=== PATIENT | female | born 1990 ===

== ENCOUNTER 2019-07-04 18:52 | Emergency (ER) | payer BC ==
[2019-07-04] MEDS ORDERED: Acetaminophen/HYDROcodone 325-10 MG Tab PO ONE ×2 (18:53→23:37)
--- NOTE | 2019-07-04 21:14 | EDM.PDOC ---
ED HPI GENERAL MEDICAL PROBLEM - General Chief Complaint: RESIDENTIAL SALES REP Problem Stated Complaint: 7 WEEKS /BLEEDING Time Seen by Provider: 07/04/19 21:11 Source of Information: Reports: Patient History Limitations: Reports: No Limitations - History of Present Illness INITIAL COMMENTS - FREE TEXT/NARRATIVE: been spotting throughout but worse tonight, soaked through 2 pads. [id number]. had US done @ [address] Betancourt @ . Lower Abdominal Pain Score (Numeric/FACES): 8 - Related Data Allergies Allergy/AdvReac Type Severity Reaction Status Date / Time No Known Allergies Allergy Verified 07/04/19 21:16 Past Medical History - Past Health History Medical/Surgical History: Denies Medical/Surgical History RESIDENTIAL SALES REP History: Reports: Social & Family History - Family History Family Medical History: Noncontributory - Tobacco Use Smoking Status *Q: Never Smoker - Caffeine Use Caffeine Use: Reports: Coffee - Recreational Drug Use Recreational Drug Use: No ED ROS GENERAL - Review of Systems Review Of Systems: Comprehensive ROS is negative, except as noted in HPI. ED EXAM - Physical Exam Exam: See Below Exam Limited By: No Limitations General Appearance: Alert, WD/WN, No Apparent Distress Ears: Hearing Grossly Normal Throat/Mouth: Normal Voice, No Airway Compromise Head: Atraumatic Neck: Non-Tender, Full Range of Motion Respiratory/Chest: No Respiratory Distress Cardiovascular: Regular Rate, Rhythm GI/Abdominal Exam: Soft, Non-Tender Neurological: Alert, Oriented, Normal Cognition, Normal Gait, No Motor/Sensory Deficits Psychiatric: Normal Affect, Normal Mood Skin Exam: Warm, Dry, Normal Color Lymphatic: No Adenopathy Course - Vital Signs Last Recorded V/S: Last Vital Signs Temp 36.8 C 07/04/19 20:23 Pulse 75 07/04/19 20:23 Resp 20 07/04/19 20:23 BP 119/83 07/04/19 20:23 Pulse Ox 100 07/04/19 20:23 - Orders/Labs/Meds Labs: Laboratory Tests 07/04/19 07/04/19 07/04/19 Range/Units 20:50 20:50 20:50 WBC 5.4 (5.0-10.0) 10^3/uL RBC 4.51 (4.2-5.4) 10^6/uL Hgb 13.5 (12.0-16.0) g/dL Hct 38.6 (37.0-47.0) % MCV 85.6 (80-100) fL MCH 29.9 (27.0-34.0) pg MCHC 35.0 (33.0-35.0) g/dL Plt Count 266 (150-450) 10^3/uL Neut % (Auto) 43.9 (42.2-75.2) % Lymph % (Auto) 45.7 (20.5-50.1) % [place] % (Auto) 8.1 H (2-8) % Eos % (Auto) 1.9 (1.0-3.0) % Baso % (Auto) 0.4 (0.0-1.0) % Sodium 136 (135-145) mmol/L Potassium 3.8 (3.6-5.0) mmol/L Chloride 102 (101-111) mmol/L Carbon Dioxide 26.0 (21.0-31.0) mmol/L Anion Gap 11.8 BUN 11 (7-18) mg/dL Creatinine 0.6 (0.6-1.3) mg/dL Est Cr Clr Drug Dosing 128.75 mL/min Estimated GFR (MDRD) > 60 BUN/Creatinine Ratio 18.33 Glucose 96 (74-105) mg/dL Calcium 9.2 (8.4-10.2) mg/dl Total Bilirubin 0.6 (0.2-1.0) mg/dL AST 18 (10-42) IU/L ALT 15 (10-60) IU/L Alkaline Phosphatase 42 (42-121) IU/L Total Protein 7.5 (6.7-8.2) g/dl Albumin 4.3 (3.2-5.5) g/dl Globulin 3.2 Albumin/Globulin Ratio 1.34 HCG, Quant > 1359 H (0-25) mIU/ml Beta HCG, Quant 7921 mIU/ml Meds: Medications Discontinued Medications Generic Name Dose Route Start Last Admin Trade Name Freq PRN Reason Stop Dose Admin Hydrocodone Bitart/Acetaminophen 1 tab 07/04/19 23:37 07/04/19 23:44 [place] 325-10 Mg PO 07/04/19 23:38 1 tab ONETIME ONE Administration Hydrocodone Bitart/Acetaminophen Confirm 07/04/19 23:39 07/04/19 23:44 [place] 325-10 Mg Administered 07/04/19 23:40 Not Given Dose 1 tab .ROUTE .STK-MED ONE - Re-Assessments/Exams Free Text/Narrative Re-Assessment/Exam: 07/04/19 23:38 US results discussed with pt who states has appt with OB and prefer to go there. presently feels ok and prefers home. Departure - Departure Time of Disposition: 23:45 Disposition: Home, Self-Care 01 Condition: Good Clinical Impression: Miscarriage - Discharge Information Instructions: Miscarriage, [facility] Forms: ED Department Discharge Additional Instructions: 1) bed rest 2) minimal activity next 48 hours 3) return if there is any change or concerns especially if feels lightheaded or dizziness. rx togo; norco 10 x 1 Sepsis Event Note - Evaluation Sepsis Screening Result: No Definite Risk - Focused Exam Vital Signs: Vital Signs Temp Pulse Resp BP Pulse Ox 07/04/19 20:23 36.8 C 75 20 119/83 100 Date Exam was Performed: 07/05/19 Time Exam was Performed: 00:24
[2019-07-04 21:20] LABS: ANION GAP 11.8; CHLORIDE,CL 102 mmol/L (101-111); SODIUM,NA 136 mmol/L (135-145)
[2019-07-04] MEDS ORDERED: Acetaminophen/HYDROcodone 325-10 MG Tab ONE (23:39)
== END 2019-07-04 23:46 | disposition home or self-care (01) ==
LOC: DL.ED 18:52
DX: O03.9 Complete or unspecified spontaneous abortion without complication (principal)
CPT/HCPCS: 36415; 76815; 80053; 84702; 85025; 99284; A9270